=== PATIENT | female | born 1935 | race Caucasian/White ===

== ENCOUNTER 2017-12-01 07:23 | Inpatient (IN) | payer MEDICARE, BC ==
--- NOTE | 2017-12-01 08:23 | EDM.PDOC ---
ED HPI GENERAL MEDICAL PROBLEM - General Chief Complaint: Syncope Stated Complaint: STOMACHACHE,SOB,DIZZY Time Seen by Provider: 12/01/17 08:00 Source of Information: Reports: Patient History Limitations: Reports: No Limitations - History of Present Illness INITIAL COMMENTS - FREE TEXT/NARRATIVE: 82 YO WF presents to ER complaining of 1 week of dizziness with near syncope. Pt reports associated shortness of breath and palpitations. Pt denies any chest pain. Pt also reports generalized abdominal pain and change in bowel movements. Pt reports chronic diarrhea but over the last few days shes been constipated. Pt reports last BM was yesterday. Pt reports she's able to pass gas but has had decreased appetite and fluid consumption over the last week. Onset Date: 11/24/17 Duration: Week(s): (1) Location: Reports: Chest, Abdomen Quality: Reports: Ache Severity: Mild Improves with: Reports: None Worsens with: Reports: None Associated Symptoms: Reports: Loss of Appetite, Malaise, Shortness of Breath, Weakness. Denies: Confusion, Chest Pain, Cough, cough w sputum, Diaphoresis, Fever/Chills, Headaches, Nausea/Vomiting, Rash, Seizure, Syncope - Related Data Allergies Allergy/AdvReac Type Severity Reaction Status Date / Time No Known Drug Allergies Allergy Cannot Verified 12/01/17 07:29 Remember Home Meds: Home Meds Bimatoprost [LUMIGAN 0.01% Ophth Soln] 1 drop EYEBOTH BEDTIME 12/01/17 [History] Timolol [Betimol] 1 drop EYELF QAM 12/01/17 [History] Past Medical History HEENT History: Reports: Cataract, Glaucoma, Impaired Vision Other Cardiovascular History: states she was told that she has had silent heart attacks - stress test done Gastrointestinal History: Reports: Hemorrhoids Other Gastrointestinal History: history of colitis Genitourinary History: Reports: Renal Calculus 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: Musculoskeletal History: Reports: Arthritis Psychiatric History: Reports: Anxiety - Infectious Disease History Infectious Disease History: Reports: None - Past Surgical History HEENT Surgical History: Reports: Cataract Surgery Cardiovascular Surgical History: Reports: None Female Surgical History: Reports: Hysterectomy Musculoskeletal Surgical History: Reports: None Social & Family History - Tobacco Use Smoking Status *Q: Current Every Day Smoker Years of Tobacco use: 65 Packs/Tins Daily: 0.5 Second Hand Smoke Exposure: Yes - Alcohol Use Days Per Week of Alcohol Use: 7 Number of Drinks Per Day: 2 Total Drinks Per Week: 14 - Recreational Drug Use Recreational Drug Use: No ED ROS GENERAL - Review of Systems Review Of Systems: See Below Constitutional: Reports: Weakness HEENT: Reports: No Symptoms Respiratory: Reports: Shortness of Breath Cardiovascular: Reports: Dyspnea on Exertion Endocrine: Reports: No Symptoms GI/Abdominal: Reports: Abdominal Pain, Constipation. Denies: Black Stool, Bloody Stool, Hematochezia, Melena : Reports: No Symptoms Musculoskeletal: Reports: No Symptoms Skin: Reports: No Symptoms Neurological: Reports: No Symptoms Psychiatric: Reports: No Symptoms Hematologic/Lymphatic: Reports: No Symptoms Immunologic: Reports: No Symptoms ED EXAM, GENERAL - Physical Exam Exam: See Below Exam Limited By: No Limitations General Appearance: Alert, WD/WN, No Apparent Distress Throat/Mouth: Normal Inspection, Normal Lips, Normal Teeth, Normal Gums, Normal Oropharynx, Normal Voice, No Airway Compromise Head: Atraumatic, Normocephalic Neck: Normal Inspection, Supple, Non-Tender, Full Range of Motion Respiratory/Chest: No Respiratory Distress, Lungs Clear, Normal Breath Sounds, No Accessory Muscle Use, Chest Non-Tender Cardiovascular: Normal Peripheral Pulses, No Edema, No JVD, No Rub, Tachycardia , Irregularly Irregular GI/Abdominal: Normal Bowel Sounds, Soft, No Organomegaly, No Distention, No Abnormal Bruit, No Mass, Tender (epigastric). No: Distended, Guarding, Rigid, Rebound Back Exam: Normal Inspection, Full Range of Motion, NT Extremities: Normal Inspection, Normal Range of Motion, Non-Tender, Normal Capillary Refill, No Pedal Edema Neurological: Alert, Oriented, CN II-XII Intact, Normal Cognition, Normal Gait, Normal Reflexes, No Motor/Sensory Deficits Psychiatric: Normal Affect, Normal Mood Skin Exam: Warm, Dry, Intact, Normal Color, No Rash Lymphatic: No Adenopathy EKG INTERPRETATION EKG Date: 12/01/17 Time: 07:54 Rhythm: A-Fib Rate (Beats/Min): 143 [place]: Normal P-Wave: Absent QRS: Normal ST-T: Normal QT: Normal Comparison: NA - No Prior EKG Course - Vital Signs Last Recorded V/S: Last Vital Signs Temp 36.6 C 05/14/18 07:27 Pulse 96 12/01/17 08:34 Resp 32 H 12/01/17 08:34 BP 129/74 12/01/17 08:34 Pulse Ox 92 L 12/01/17 08:34 - Orders/Labs/Meds Orders: Active Orders 24 hr Category Date Time Status Chest 2V [CR] Routine Exams 12/01/17 Ordered B-TYPE NATRIURETIC PEPTIDE,BNP [CHEM] Stat Lab 12/01/17 07:55 Results CK W CKMB [CHEM] Stat Lab 12/01/17 07:55 Results COMPREHENSIVE METABOLIC PN,CMP [CHEM] Stat Lab 12/01/17 07:55 Results INR,PT,PROTHROMBIN TIME [COAG] Stat Lab 12/01/17 07:55 Received LIPASE [CHEM] Stat Lab 12/01/17 07:55 Results PTT,PARTIAL THROMBOPLSTIN TIME [COAG] Stat Lab 12/01/17 07:55 Received TROPONIN I [CHEM] Stat Lab 12/01/17 07:55 Results URINALYSIS W/MICROSCOPIC [UA W/MICROSCOPIC] [URIN] Stat Lab 12/01/17 07:45 Ordered Diltiazem 125 MG in NS 125 ML @ 5 MG/HR (100ml) Med 12/01/17 08:45 Ordered Diltiazem 125 mg Sodium Chloride 0.9% [Normal Saline] 100 ml IV TITRATE Medication Orders Diltiazem HCl 125 mg/ Sodium (Chloride) 125 mls @ 5 mls/hr IV TITRATE CINTHIA Labs: Laboratory Tests 12/01/17 12/01/17 12/01/17 Range/Units 07:45 07:55 07:55 WBC 10.0 (5.0-10.0) 10^3/uL RBC 4.42 (3.80-5.50) 10^6/uL Hgb 15.0 (12.0-16.0) g/dL Hct 44.3 (37.0-47.0) % MCV 100.4 H (82.0-92.0) fL MCH 34.0 H (27.0-31.0) pg MCHC 33.8 (32.0-36.0) g/dL RDW 13.2 (11.5-14.5) % Plt Count 268 (150-300) 10^3/uL MPV 8.4 (7.4-10.4) fL Neut % (Auto) 84.2 H (50.0-70.0) % Lymph % (Auto) 9.8 L (20.0-40.0) % [place] % (Auto) 5.5 (2.0-8.0) % Eos % (Auto) 0.4 L (1.0-3.0) % Baso % (Auto) 0.1 (0.0-1.0) % Neut # (Auto) 8.4 H (2.5-7.0) 10^3/uL Lymph # (Auto) 1.0 (1.0-4.0) 10^3/uL [place] # (Auto) 0.6 (0.1-0.8) 10^3/uL Eos # (Auto) 0.0 L (0.1-0.3) 10^3/uL Baso # (Auto) 0.0 (0.0-0.1) 10^3/uL Sodium 133 L (136-145) mmol/L Potassium 4.5 (3.3-5.3) mmol/L Chloride 96 L (98-115) mmol/L Carbon Dioxide 24.1 (21.0-32.0) mmol/L BUN 10 (6-25) mg/dL Creatinine 0.53 (0.51-1.17) mg/dL Est Cr Clr Drug Dosing 72.75 mL/min Estimated GFR (MDRD) > 60 mL/min Glucose 181 H (70-110) mg/dL Calcium 9.0 (8.7-10.3) mg/dL Total Bilirubin 0.7 (0.2-1.0) mg/dL AST 35 (15-37) U/L ALT 44 (12-78) U/L Alkaline Phosphatase 92 (46-116) IU/L Creatine Kinase 54 (26-276) U/L CK-MB (CK-2) 1.20 (0.00-4.30) ng/mL Troponin I < 0.04 (0.00-0.070) ng/mL Total Protein 6.8 (6.4-8.2) g/dL Albumin 3.48 (3.00-4.80) g/dL Lipase 94 (73-393) U/L Specimen Type Urincc Urine Color Dark yellow H (YELLOW) Urine Appearance Clear (CLEAR) Urine pH 6.5 (5.0-9.0) Ur Specific [place] 1.020 (1.005-1.030) Urine Protein 100 H (NEGATIVE) mg/dL Urine Glucose (UA) Negative (NEGATIVE) mg/dL Urine Ketones 15 H (NEGATIVE) mg/dL Urine Occult Blood Trace-intact H (NEGATIVE) Urine Nitrite Negative (NEGATIVE) Urine Bilirubin Moderate H (NEGATIVE) Urine Urobilinogen 4.0 H (0.2-1.0) E.U./dL Ur Leukocyte Esterase Negative (NEGATIVE) Urine RBC 0-5 /HPF Urine WBC 0-5 /HPF Ur Epithelial Cells Few /LPF Urine Bacteria Moderate H (NONE TO FEW) /HPF Urine Mucus Many H (NEGATIVE) /LPF Meds: Medications Generic Name Dose Route Start Last Admin Trade Name Freq PRN Reason Stop Dose Admin Diltiazem HCl 125 mg/ Sodium 125 mls @ 5 mls/hr 12/01/17 08:45 Chloride IV TITRATE CINTHIA 5 MG/HR Discontinued Medications Generic Name Dose Route Start Last Admin Trade Name Freq PRN Reason Stop Dose Admin Diltiazem HCl 15 mg 12/01/17 08:23 12/01/17 08:26 Diltiazem IVPUSH 12/01/17 08:24 15 mg ONETIME ONE Administration - Radiology Interpretation Free Text/Narrative:: CXR- NAD Departure - Departure Time of Disposition: 08:45 Disposition: Admitted As Inpatient 68 Condition: Fair Clinical Impression: Hyponatremia Atrial fibrillation Qualifiers: Atrial fibrillation type: unspecified Qualified Code(s): I48.91 - Unspecified atrial fibrillation Urinary tract infection Qualifiers: Urinary tract infection type: acute cystitis Hematuria presence: without hematuria Qualified Code(s): N30.00 - Acute cystitis without hematuria Abdominal pain Qualifiers: Abdominal location: epigastric Qualified Code(s): R10.13 - Epigastric pain Referrals: Claudia Cardona MD [Primary Care Provider] - Forms: ED Department Discharge - My Orders Last 24 Hours: My Active Orders 12/01/17 Chest 2V [CR] Routine 12/01/17 07:45 URINALYSIS W/MICROSCOPIC [UA W/MICROSCOPIC] [URIN] Stat 12/01/17 07:55 B-TYPE NATRIURETIC PEPTIDE,BNP [CHEM] Stat CK W CKMB [CHEM] Stat COMPREHENSIVE METABOLIC PN,CMP [CHEM] Stat INR,PT,PROTHROMBIN TIME [COAG] Stat LIPASE [CHEM] Stat PTT,PARTIAL THROMBOPLSTIN TIME [COAG] Stat TROPONIN I [CHEM] Stat 12/01/17 08:45 Diltiazem 125 MG in NS 125 ML @ 5 MG/HR (100ml) Diltiazem 125 mg Sodium Chloride 0.9% [Normal Saline] 100 ml IV TITRATE - Assessment/Plan Last 24 Hours: My Active Orders 12/01/17 Chest 2V [CR] Routine 12/01/17 07:45 URINALYSIS W/MICROSCOPIC [UA W/MICROSCOPIC] [URIN] Stat 12/01/17 07:55 B-TYPE NATRIURETIC PEPTIDE,BNP [CHEM] Stat CK W CKMB [CHEM] Stat COMPREHENSIVE METABOLIC PN,CMP [CHEM] Stat INR,PT,PROTHROMBIN TIME [COAG] Stat LIPASE [CHEM] Stat PTT,PARTIAL THROMBOPLSTIN TIME [COAG] Stat TROPONIN I [CHEM] Stat 12/01/17 08:45 Diltiazem 125 MG in NS 125 ML @ 5 MG/HR (100ml) Diltiazem 125 mg Sodium Chloride 0.9% [Normal Saline] 100 ml IV TITRATE Assessment:: 1. new onset Atrial Fibrillation 2. epigastric abdominal pain 3. constipation 4. hyponatremia 5. UTI Plan: 1. Admit to Dr Silva 2. Cardizem 5mg gtt IV 3. repeat trop I Q6 4. Keflex 500mg Q6 5. gentle IVF hydration NS @75cc/hr 6. supportive care
[2017-12-01] MEDS: Diltiazem 25 MG/5 ML SDV IVPUSH ONE ×2 (08:26→08:46)
[2017-12-01 08:36] LABS: CHLORIDE,CL 96 mmol/L (98-115); SODIUM,NA 133 mmol/L (136-145)
[2017-12-01] MEDS ORDERED: Diltiazem 125 MG in Sodium Chloride 0.9% 100 ML IV SCH ×3 (08:45→18:15)
[2017-12-01] MEDS ORDERED: Sodium Chloride 0.9% 5 ML Syringe FLUSH PRN (08:48)
[2017-12-01] MEDS ORDERED: Nitroglycerin 0.4 MG Tab.SL SL PRN (09:43)
[2017-12-01] MEDS ORDERED: EPINEPHrine 1:10,000 1 MG/10 ML Syringe IVPUSH PRN (09:43)
[2017-12-01] MEDS ORDERED: Lidocaine 2% 100 MG/5 ML Syringe IVPUSH PRN (09:43)
[2017-12-01] MEDS ORDERED: Atropine 0.1 MG/ML 10 ML Syringe IVPUSH PRN (09:43)
[2017-12-01] MEDS: Cephalexin 250 MG Cap PO SCH ×2 (10:46→10:48)
[2017-12-01] MEDS ORDERED: LORazepam 2 MG/ML SDV IVPUSH PRN (11:15)
[2017-12-01 11:59] LABS: O2 DELIVERY DEVICE NASAL CANNULA
[2017-12-01 12:04] LABS: O2 SATURATION ARTERIAL 95 % (95-98); PCO2 ARTERIAL 38 mmHG (35-45); PO2 ARTERIAL 76 mmHG (80-105)
[2017-12-01 12:05] LABS: BASE EXCESS ARTERIAL 1 mmol/L (-2-3); BICARBONATE,ARTERIAL 24.9 mmol/L (22-26)
[2017-12-01] MEDS ORDERED: Enoxaparin 40 MG/0.4 ML Syringe SUBCUT SCH (13:00)
[2017-12-01] MEDS ORDERED: Iopamidol 612 MG/ML 75 ML Bottle IV ONE (14:41)
[2017-12-01] MEDS ORDERED: Sodium Chloride 0.9% 50 ML IV SCH (14:45)
[2017-12-01] MEDS ORDERED: Iopamidol 755 Mg/ML 100 ML Bottle IVPUSH ONE (14:47)
[2017-12-01] MEDS ORDERED: Sodium Chloride 0.9% 100 ML IV SCH (15:00)
[2017-12-01] MEDS ORDERED: Furosemide 40 MG/4 ML VIAL IVPUSH ONE (16:38)
[2017-12-01] MEDS ORDERED: Sodium Chloride 0.9% 1,000 ML IV ONE (18:32)
[2017-12-01] MEDS ORDERED: metroNIDAZOLE/Normal Saline 500 MG in Premix Bag 1 BAG IV ONE (18:45)
[2017-12-01] MEDS ORDERED: LORazepam 2 MG/ML SDV IVPUSH ONE (18:45)
--- NOTE | 2017-12-01 18:47 | PCM.DCSUM1 ---
Discharge Summary - Hospital Course Free Text/Narrative:: Joanna is being discharged to [facility] for further management of A-fib with RVR, bilateral pleural effusions and possible perforated diverticulum. She was admitted this morning (12/01/17). Joanna is an 82 yo F with a PMH of glaucoma and cataracts, smoker of 1/2 ppd. She presented to the ER this morning with a 1 week hx of dizziness with near syncope, palpitations, SOB and generalized abdominal pain. She has a hx of chronic diarrhea and has tended toward constipation over the past week. She has a BM yesterday. She has been nauseated and has had poor appetite over this same time frame. In the ER she was noted to be in A-fib with RVR, rate of 143. She was started on diltiazem drip. CXR negative, troponin negative. Initial VS 145/95, pulse 143, RR 18, O2 92% on RA, temp 97.9. Labs wtih Hgb 15, WBC 10 with a slight left shift 84.2% neuts, INR 1.2, sodium 133, potassium 4.5, chloride 96, CO2 24.1, BUN 10, Cr 0.53. Mag slightly low at 1.6, LFT's normal. She was started on IVF's as well at 75cc per hour due to some ketones in her urine. UA largely unremarkable. Diltizem drip titrated up to 15 mg/hr but BP dropped to 90/53 so rate backed down to 10 mg/hr. RR noted to increase and she has been tachypneic with rate as high as 38 but typically high 20's to low 30' s. She is not working hard to breathe, however. She was also noted to have significant epigastric tenderness on examination. D-dimer checked and was 842, ABG with PO2 76, CO2 38, pH 7.43. BNP 783 with no hx of CHF or cardiac issues at all. CT PE protocol obtained as well as CT abdomen and pelvis. CT chest showed moderate right pleural effusion as well as small left pleural effusion. Moderate pulmonary vascular congestion. CT abdomen showed small free air likely related to diverticular disease of the sigmoid colon with moderate amount of free fluid in the pelvis. Question of thrombus superior mesenteric vein vs. unopacified blood. Given pulmonary vascular congestion and tachypnea with elevated BNP IVF's were held and lasix 20 mg IV was given. This did not change her respiratory status. The CT results became available around 1644 and I consulted with [facility], who felt she was too complicated to be seen there. It took them 45 minutes to get back to me. I then called [facility] and spoke to their hospitalist as well as surgeon and eventually graphics artist Dr. Simon, who graciously accepted her for transfer. Her heart rate has been in the 80-90's on 10 mg/hr of diltiazem. She did go up to the low 100's with news she needed to be transferred. She was given lorazepam 1 mg IV for this. She received lovenox 40 mg subcut at 1400. She was restarted on IVF's of NS at 100 cc per hour as well as ciprofloxacin 400 mg IV x 1 and metronidazole 500 mg IV x 1. Respiratory status is stable and low risk of progression to respiratory failure at the time of transfer. She is sent with her eye drops for her glaucoma. VS at transfer BP 124-78, respiratory rate 32, pulse 109, O2 96% on 2L via NC. - Discharge Data Discharge Date: 12/01/17 Discharge Disposition: DC/Tfer to Acute Hospital 02 Condition: Serious - Discharge Diagnosis/Problem(s) (1) Free intraperitoneal air SNOMED Code(s): 19976581 ICD Code: K66.8 - OTHER SPECIFIED DISORDERS OF PERITONEUM Status: Acute Current Visit: Yes (2) Atrial fibrillation SNOMED Code(s): 22111903 ICD Code: I48.91 - UNSPECIFIED ATRIAL FIBRILLATION Status: Acute Current Visit: Yes Qualifiers: Atrial fibrillation type: unspecified Qualified Code(s): I48.91 - Unspecified atrial fibrillation - Patient Instructions Diet: NPO - Discharge Plan Home Medications: Home Meds Bimatoprost [LUMIGAN 0.01% Ophth Soln] 1 drop EYEBOTH BEDTIME 12/01/17 [History] Timolol 0.5% Gfs 1 drop EYELF DAILY 12/01/17 [History] Forms: Interfacility Transfer EMTALA Referrals: Claudia Cardona MD [Primary Care Provider] - - Discharge Summary/Plan Comment DC Time >30 min.: Yes (Discharge time 90 minutes) - General Info Date of Service: 12/01/17 Admission Dx/Problem (Free Text: A-fib with RVR, abdominal pain. - Patient Data Vitals - Most Recent: Last Vital Signs Temp 98.7 F 12/01/17 15:30 Pulse 109 H 12/01/17 15:30 Resp 32 H 12/01/17 15:30 BP 124/78 12/01/17 15:30 Pulse Ox 96 12/01/17 15:30 Weight - Most Recent: 120 lb I&O - Last 24 hours: Intake & Output 12/01/17 12/01/17 12/01/17 06:59 14:59 22:59 Intake Total 100 98 Balance 100 98 Lab Results - Last 24 hrs: Laboratory Results - last 24 hr 12/01/17 12/01/17 12/01/17 Range/Units 07:45 07:55 07:55 WBC 10.0 (5.0-10.0) 10^3/uL RBC 4.42 (3.80-5.50) 10^6/uL Hgb 15.0 (12.0-16.0) g/dL Hct 44.3 (37.0-47.0) % MCV 100.4 H (82.0-92.0) fL MCH 34.0 H (27.0-31.0) pg MCHC 33.8 (32.0-36.0) g/dL RDW 13.2 (11.5-14.5) % Plt Count 268 (150-300) 10^3/uL MPV 8.4 (7.4-10.4) fL Neut % (Auto) 84.2 H (50.0-70.0) % Lymph % (Auto) 9.8 L (20.0-40.0) % Price % (Auto) 5.5 (2.0-8.0) % Eos % (Auto) 0.4 L (1.0-3.0) % Baso % (Auto) 0.1 (0.0-1.0) % Neut # (Auto) 8.4 H (2.5-7.0) 10^3/uL Lymph # (Auto) 1.0 (1.0-4.0) 10^3/uL Price # (Auto) 0.6 (0.1-0.8) 10^3/uL Eos # (Auto) 0.0 L (0.1-0.3) 10^3/uL Baso # (Auto) 0.0 (0.0-0.1) 10^3/uL PT (8.9-11.4) SEC INR (0.9-1.1) APTT (20.8-31.2) SEC D-Dimer, Quantitative (<400) ng/mL ABG pH (7.35-7.45) ABG pCO2 (35-45) mmHG ABG pO2 (80-105) mmHG ABG HCO3 (22-26) mmol/L ABG Total CO2 (23-27) mmol/L ABG O2 Saturation (95-98) % ABG Base Excess (-2-3) mmol/L O2 Delivery Device Sodium 133 L (136-145) mmol/L Potassium 4.5 (3.3-5.3) mmol/L Chloride 96 L (98-115) mmol/L Carbon Dioxide 24.1 (21.0-32.0) mmol/L BUN 10 (6-25) mg/dL Creatinine 0.53 (0.51-1.17) mg/dL Est Cr Clr Drug Dosing 72.75 mL/min Estimated GFR (MDRD) > 60 mL/min Glucose 181 H (70-110) mg/dL Calcium 9.0 (8.7-10.3) mg/dL Magnesium (1.8-2.4) mg/dL Total Bilirubin 0.7 (0.2-1.0) mg/dL AST 35 (15-37) U/L ALT 44 (12-78) U/L Alkaline Phosphatase 92 (46-116) IU/L Creatine Kinase 54 (26-276) U/L CK-MB (CK-2) 1.20 (0.00-4.30) ng/mL Troponin I < 0.04 (0.00-0.070) ng/mL B-Natriuretic Peptide 783 H (0-100) pg/mL Total Protein 6.8 (6.4-8.2) g/dL Albumin 3.48 (3.00-4.80) g/dL Lipase 94 (73-393) U/L Free T4 (0.59-1.17) ng/dL TSH, Ultra Sensitive (0.340-4.820) uIU/mL Specimen Type Urincc Urine Color Dark yellow H (YELLOW) Urine Appearance Clear (CLEAR) Urine pH 6.5 (5.0-9.0) Ur Specific [place] 1.020 (1.005-1.030) Urine Protein 100 H (NEGATIVE) mg/dL Urine Glucose (UA) Negative (NEGATIVE) mg/dL Urine Ketones 15 H (NEGATIVE) mg/dL Urine Occult Blood Trace-intact H (NEGATIVE) Urine Nitrite Negative (NEGATIVE) Urine Bilirubin Moderate H (NEGATIVE) Urine Urobilinogen 4.0 H (0.2-1.0) E.U./dL Ur Leukocyte Esterase Negative (NEGATIVE) Urine RBC 0-5 /HPF Urine WBC 0-5 /HPF Ur Epithelial Cells Few /LPF Urine Bacteria Moderate H (NONE TO FEW) /HPF Urine Mucus Many H (NEGATIVE) /LPF 12/01/17 12/01/17 12/01/17 Range/Units 07:55 07:55 07:55 WBC (5.0-10.0) 10^3/uL RBC (3.80-5.50) 10^6/uL Hgb (12.0-16.0) g/dL Hct (37.0-47.0) % MCV (82.0-92.0) fL MCH (27.0-31.0) pg MCHC (32.0-36.0) g/dL RDW (11.5-14.5) % Plt Count (150-300) 10^3/uL MPV (7.4-10.4) fL Neut % (Auto) (50.0-70.0) % Lymph % (Auto) (20.0-40.0) % Price % (Auto) (2.0-8.0) % Eos % (Auto) (1.0-3.0) % Baso % (Auto) (0.0-1.0) % Neut # (Auto) (2.5-7.0) 10^3/uL Lymph # (Auto) (1.0-4.0) 10^3/uL Price # (Auto) (0.1-0.8) 10^3/uL Eos # (Auto) (0.1-0.3) 10^3/uL Baso # (Auto) (0.0-0.1) 10^3/uL PT 12.5 H (8.9-11.4) SEC INR 1.2 H (0.9-1.1) APTT 24.0 (20.8-31.2) SEC D-Dimer, Quantitative 842 H (<400) ng/mL ABG pH (7.35-7.45) ABG pCO2 (35-45) mmHG ABG pO2 (80-105) mmHG ABG HCO3 (22-26) mmol/L ABG Total CO2 (23-27) mmol/L ABG O2 Saturation (95-98) % ABG Base Excess (-2-3) mmol/L O2 Delivery Device Sodium (136-145) mmol/L Potassium (3.3-5.3) mmol/L Chloride (98-115) mmol/L Carbon Dioxide (21.0-32.0) mmol/L BUN (6-25) mg/dL Creatinine (0.51-1.17) mg/dL Est Cr Clr Drug Dosing mL/min Estimated GFR (MDRD) mL/min Glucose (70-110) mg/dL Calcium (8.7-10.3) mg/dL Magnesium (1.8-2.4) mg/dL Total Bilirubin (0.2-1.0) mg/dL AST (15-37) U/L ALT (12-78) U/L Alkaline Phosphatase (46-116) IU/L Creatine Kinase (26-276) U/L CK-MB (CK-2) (0.00-4.30) ng/mL Troponin I (0.00-0.070) ng/mL B-Natriuretic Peptide (0-100) pg/mL Total Protein (6.4-8.2) g/dL Albumin (3.00-4.80) g/dL Lipase (73-393) U/L Free T4 1.03 (0.59-1.17) ng/dL TSH, Ultra Sensitive 2.340 (0.340-4.820) uIU/mL Specimen Type Urine Color (YELLOW) Urine Appearance (CLEAR) Urine pH (5.0-9.0) Ur Specific [place] (1.005-1.030) Urine Protein (NEGATIVE) mg/dL Urine Glucose (UA) (NEGATIVE) mg/dL Urine Ketones (NEGATIVE) mg/dL Urine Occult Blood (NEGATIVE) Urine Nitrite (NEGATIVE) Urine Bilirubin (NEGATIVE) Urine Urobilinogen (0.2-1.0) E.U./dL Ur Leukocyte Esterase (NEGATIVE) Urine RBC /HPF Urine WBC /HPF Ur Epithelial Cells /LPF Urine Bacteria (NONE TO FEW) /HPF Urine Mucus (NEGATIVE) /LPF 12/01/17 12/01/17 Range/Units 11:55 14:00 WBC (5.0-10.0) 10^3/uL RBC (3.80-5.50) 10^6/uL Hgb (12.0-16.0) g/dL Hct (37.0-47.0) % MCV (82.0-92.0) fL MCH (27.0-31.0) pg MCHC (32.0-36.0) g/dL RDW (11.5-14.5) % Plt Count (150-300) 10^3/uL MPV (7.4-10.4) fL Neut % (Auto) (50.0-70.0) % Lymph % (Auto) (20.0-40.0) % Price % (Auto) (2.0-8.0) % Eos % (Auto) (1.0-3.0) % Baso % (Auto) (0.0-1.0) % Neut # (Auto) (2.5-7.0) 10^3/uL Lymph # (Auto) (1.0-4.0) 10^3/uL Price # (Auto) (0.1-0.8) 10^3/uL Eos # (Auto) (0.1-0.3) 10^3/uL Baso # (Auto) (0.0-0.1) 10^3/uL PT (8.9-11.4) SEC INR (0.9-1.1) APTT (20.8-31.2) SEC D-Dimer, Quantitative (<400) ng/mL ABG pH 7.43 (7.35-7.45) ABG pCO2 38 (35-45) mmHG ABG pO2 76 L (80-105) mmHG ABG HCO3 24.9 (22-26) mmol/L ABG Total CO2 26 (23-27) mmol/L ABG O2 Saturation 95 (95-98) % ABG Base Excess 1 (-2-3) mmol/L O2 Delivery Device Nasal cannula Sodium (136-145) mmol/L Potassium (3.3-5.3) mmol/L Chloride (98-115) mmol/L Carbon Dioxide (21.0-32.0) mmol/L BUN (6-25) mg/dL Creatinine (0.51-1.17) mg/dL Est Cr Clr Drug Dosing mL/min Estimated GFR (MDRD) mL/min Glucose (70-110) mg/dL Calcium (8.7-10.3) mg/dL Magnesium 1.6 L (1.8-2.4) mg/dL Total Bilirubin (0.2-1.0) mg/dL AST (15-37) U/L ALT (12-78) U/L Alkaline Phosphatase (46-116) IU/L Creatine Kinase (26-276) U/L CK-MB (CK-2) (0.00-4.30) ng/mL Troponin I < 0.04 (0.00-0.070) ng/mL B-Natriuretic Peptide (0-100) pg/mL Total Protein (6.4-8.2) g/dL Albumin (3.00-4.80) g/dL Lipase (73-393) U/L Free T4 (0.59-1.17) ng/dL TSH, Ultra Sensitive (0.340-4.820) uIU/mL Specimen Type Urine Color (YELLOW) Urine Appearance (CLEAR) Urine pH (5.0-9.0) Ur Specific [place] (1.005-1.030) Urine Protein (NEGATIVE) mg/dL Urine Glucose (UA) (NEGATIVE) mg/dL Urine Ketones (NEGATIVE) mg/dL Urine Occult Blood (NEGATIVE) Urine Nitrite (NEGATIVE) Urine Bilirubin (NEGATIVE) Urine Urobilinogen (0.2-1.0) E.U./dL Ur Leukocyte Esterase (NEGATIVE) Urine RBC /HPF Urine WBC /HPF Ur Epithelial Cells /LPF Urine Bacteria (NONE TO FEW) /HPF Urine Mucus (NEGATIVE) /LPF Med Orders - Current: Current Medications Atropine Sulfate (Atropine 0.1 Mg/Ml) 0 mg IVPUSH ASDIRECTED PRN PRN Reason: Heart Enoxaparin Sodium (Lovenox) 40 mg SUBCUT Q24H CINTHIA Last Admin: 12/01/17 14:00 Dose: 40 mg Epinephrine HCl (Epinephrine 1:10,000) 1 mg IVPUSH ASDIRECTED PRN PRN Reason: Heart Diltiazem HCl 125 mg/ Sodium (Chloride) 125 mls @ 10 mls/hr IV TITRATE CINTHIA Ciprofloxacin/Dextrose 400 mg/ (Premix) 200 mls @ 200 mls/hr IV ONETIME CINTHIA Metronidazole 500 mg/ Premix 100 mls @ 100 mls/hr IV ONETIME CINTHIA Sodium Chloride (Normal Saline) 1,000 mls @ 100 mls/hr IV ASDIRECTED ONE Stop: 12/02/17 04:31 Lidocaine HCl (Xylocaine 2%) 0 mg IVPUSH ASDIRECTED PRN PRN Reason: Heart Lorazepam (Ativan) 1 mg IVPUSH Q8H PRN PRN Reason: Anxiety Last Admin: 12/01/17 12:42 Dose: 1 mg Nitroglycerin (Nitrostat) 0.4 mg SL ASDIRECTED PRN PRN Reason: Heart Bimatoprost (Lumigan ) 0.01% Ophth Solution 0 each EYEBOTH BEDTIME [facility] Timolol 0.5% Gfs (Ophth) 0 each EYELF DAILY [facility] Discontinued Medications Cephalexin (Keflex) 500 mg PO Q6HR [facility]TH[facility] Last Admin: 12/01/17 10:48 Dose: Not Given Diltiazem HCl (Diltiazem) 15 mg IVPUSH ONETIME ONE Stop: 12/01/17 08:24 Last Admin: 12/01/17 08:26 Dose: 15 mg Furosemide (Lasix) 20 mg IVPUSH NOW ONE Stop: 12/01/17 16:39 Last Admin: 12/01/17 16:59 Dose: 20 mg Diltiazem HCl 125 mg/ Sodium (Chloride) 125 mls @ 5 mls/hr IV TITRATE [facility]; Protocol Last Admin: 12/01/17 08:45 Dose: 5 mg/hr, 5 mls/hr Diltiazem HCl 125 mg/ Sodium (Chloride) 125 mls @ 5 mls/hr IV TITRATE [facility]; Protocol Sodium Chloride (Normal Saline) 100 mls @ 200 mls/hr IV ASDIRECTED [facility]TH[facility] Stop: 12/01/17 17:00 Last Admin: 12/01/17 15:55 Dose: 200 mls/hr Iopamidol (Isovue-370 (76%)) 100 ml IVPUSH ONETIME ONE Stop: 12/01/17 14:48 Last Admin: 12/01/17 15:55 Dose: 100 ml Sodium Chloride (Syrex Flush) 5 ml FLUSH Q8HR PRN PRN Reason: Keep Vein Open - Exam Quality Assessment: Reports: Supplemental Oxygen General: Reports: Alert, Oriented, Cooperative, Other (Anxious) Lungs: Reports: Crackles (Bibasilar crackles.), Other (Tachypneic) Cardiovascular: Reports: No Murmurs, Irregular Rhythm GI/Abdominal Exam: Normal Bowel Sounds, Tender (Epigastric tenderness) Extremities: Normal Inspection, No Pedal Edema Skin: Reports: Warm, Dry, Intact Psy/Mental Status: Reports: Alert, Anxious EKG INTERPRETATION Rhythm: A-Fib
[2017-12-01] MEDS ORDERED: Ciprofloxacin in D5W 400 MG in Premix Bag 1 BAG IV ONE ×2 (20:00)
[2017-12-01] MEDS ORDERED: BIMATOPROST 0.01% EYEBOTH SCH (21:00)
[2017-12-02] MEDS ORDERED: TIMOLOL 0.5% EYELF SCH (09:00)
== END 2017-12-01 19:45 | DRG 394 ==
LOC: KA.ED 07:23 → KA.MS 08:48 → UNDODISIN 09:10
PROVIDERS: ADMIT Physician Assistant Medical; ATTEND Internal Medicine
DX: K66.8 Other specified disorders of peritoneum (principal); N30.00 Acute cystitis without hematuria; J90 Pleural effusion, not elsewhere classified; R10.13 Epigastric pain; K59.00 Constipation, unspecified; K57.20 Diverticulitis of large intestine with perforation and abscess without bleeding; E87.1 Hypo-osmolality and hyponatremia; I48.91 Unspecified atrial fibrillation; H40.9 Unspecified glaucoma; Z79.899 Other long term (current) drug therapy; F41.9 Anxiety disorder, unspecified; F17.200 Nicotine dependence, unspecified, uncomplicated
CPT/HCPCS: 36415; 36600; 71046; 71260; 74177; 80053; 81001; 82550; 82553; 82803; 83690; 83735; 83880; 84439; 84443; 84484; 85025; 85379; 85610; 85730; 87086; 93005; 96374; 99285; A9270-GY; J0744; J1650; J1940; J2060; J3490; J7030; J7050; Q9967

== ENCOUNTER 2022-02-18 14:09 | Inpatient (IN) | payer MEDICARE, BC ==
[2022-02-18] MEDS ORDERED: Sodium Chloride 0.9% 1,000 ML IV ONE (14:18)
[2022-02-18] MEDS: Ondansetron 4 MG/2 ML SDV IVPUSH ONE ×2 (14:25→14:28)
[2022-02-18] MEDS ORDERED: Morphine 2 MG/ML SYRINGE IVPUSH ONE ×5 (14:31→19:38)
[2022-02-18] MEDS ORDERED: Morphine 2 MG/ML SYRINGE ONE (14:32)
[2022-02-18] MEDS ORDERED: Metoprolol Tartrate 5 MG/5 ML SDV IVPUSH ONE ×2 (15:05→16:01)
[2022-02-18] MEDS ORDERED: Iopamidol 755 Mg/ML 75 ML Bottle IVPUSH ONE (15:11)
[2022-02-18] MEDS ORDERED: Sodium Chloride 0.9% 50 ML IV SCH (15:15)
[2022-02-18] MEDS ORDERED: HYDROmorphone 1 MG/ML Syringe IM ONE (16:00)
[2022-02-18] MEDS ORDERED: HYDROmorphone 1 MG/ML Syringe IVPUSH ONE ×2 (16:11→17:16)
[2022-02-18] MEDS: Sodium Chloride 0.9% 1,000 ML IV SCH (18:13)
[2022-02-18] MEDS ORDERED: Ondansetron 4 MG/2 ML SDV IVPUSH ONE (18:22)
[2022-02-18] MEDS ORDERED: Morphine 2 MG/ML SYRINGE IVPUSH PRN (18:48)
[2022-02-18] MEDS ORDERED: Ondansetron 4 MG/2 ML SDV IVPUSH PRN (18:50)
[2022-02-18] MEDS ORDERED: HYDROmorphone 1 MG/ML Syringe IVPUSH PRN (20:57)
[2022-02-18] MEDS ORDERED: Apixaban 5 MG Tab PO SCH (21:00)
[2022-02-18] MEDS ORDERED: Latanoprost 0.005% Ophth Soln 2.5 ML Bottle EYEBOTH SCH (21:00)
[2022-02-18] MEDS: HYDROmorphone 1 MG/ML Syringe IVPUSH PRN ×2 (22:49→23:50)
[2022-02-18] MEDS ORDERED: hydrALAZINE 20 MG/ML SDV IVPUSH PRN (23:04)
[2022-02-19] MEDS: HYDROmorphone 1 MG/ML Syringe IVPUSH PRN ×12 (00:57→20:31)
[2022-02-19] MEDS: Sodium Chloride 0.9% 1,000 ML IV SCH ×3 (04:07→22:44)
[2022-02-19 08:00] LABS: HEMOGLOBIN A1C 5.6 % (4.3-5.7)
[2022-02-19] MEDS: Enoxaparin 40 MG/0.4 ML Syringe SUBCUT SCH (08:18)
[2022-02-19] MEDS ORDERED: Apixaban 5 MG Tab PO SCH (09:00)
[2022-02-19] MEDS ORDERED: Metoprolol Succinate 25 MG Tab.ER PO SCH (09:00)
[2022-02-19] MEDS ORDERED: Timolol Maleate 0.5% Ophth Soln 5 ML Bottle EYELF SCH (09:00)
[2022-02-19] MEDS ORDERED: Lisinopril 20 MG Tab PO SCH (09:00)
[2022-02-19] MEDS: metroNIDAZOLE/Normal Saline 500 MG in Premix Bag 1 BAG IV SCH ×2 (09:16→17:18)
[2022-02-19] MEDS ORDERED: Clindamycin Phosphate in D5W 900 MG in Premix Bag 1 BAG IV SCH ×2 (14:00)
[2022-02-19] MEDS ORDERED: Sodium Chloride 0.9% 1,000 ML IV SCH ×2 (14:45→17:30)
[2022-02-19] MEDS: Meropenem 1 GM in Sodium Chloride 0.9% 100 ML IV SCH (15:59)
[2022-02-19] MEDS ORDERED: Digoxin 125 MCG Tab PO SCH (18:00)
[2022-02-19] MEDS ORDERED: EYE EYEBOTH SCH (21:00)
[2022-02-19] MEDS ORDERED: LUMIGAN 0.01% EYEBOTH SCH (21:00)
[2022-02-20] MEDS: metroNIDAZOLE/Normal Saline 500 MG in Premix Bag 1 BAG IV SCH ×2 (01:07→08:23)
[2022-02-20] MEDS: Meropenem 1 GM in Sodium Chloride 0.9% 100 ML IV SCH (03:16)
[2022-02-20] MEDS: HYDROmorphone 1 MG/ML Syringe IVPUSH PRN ×5 (03:21→14:05)
[2022-02-20] MEDS: Sodium Chloride 0.9% 1,000 ML IV SCH (07:21)
[2022-02-20 08:08] LABS: ANION GAP 14.4 mmol/L (5-15)
[2022-02-20] MEDS: Enoxaparin 40 MG/0.4 ML Syringe SUBCUT SCH (08:23)
[2022-02-20] MEDS ORDERED: TIMOLOL 0.5% EYELF SCH (09:00)
[2022-02-20 13:49] VITALS: BP 114/57; PULSE 122
== END 2022-02-20 14:10 | DRG 872 ==
LOC: KA.ED 14:09 → KA.MS 17:26
PROVIDERS: ADMIT Internal Medicine; ATTEND Internal Medicine
PROC: 0D9670Z Drainage of Stomach with Drainage Device, Via Natural or Artificial Opening (ICD-10-PCS; principal; 2022-02-18)
DX: A41.9 Sepsis, unspecified organism (principal); I48.11 Longstanding persistent atrial fibrillation; R10.13 Epigastric pain; N17.9 Acute kidney failure, unspecified; K58.9 Irritable bowel syndrome, unspecified; K56.600 Partial intestinal obstruction, unspecified as to cause; Z28.311 Partially vaccinated for COVID-19; I95.9 Hypotension, unspecified; E87.5 Hyperkalemia; E83.42 Hypomagnesemia; Z66 Do not resuscitate; Z20.822 Contact with and (suspected) exposure to COVID-19; R73.9 Hyperglycemia, unspecified; H54.7 Unspecified visual loss; H40.9 Unspecified glaucoma; K52.9 Noninfective gastroenteritis and colitis, unspecified; M19.90 Unspecified osteoarthritis, unspecified site; F41.9 Anxiety disorder, unspecified; Z98.49 Cataract extraction status, unspecified eye; Z79.01 Long term (current) use of anticoagulants; Z79.899 Other long term (current) drug therapy; Z90.710 Acquired absence of both cervix and uterus; Z87.442 Personal history of urinary calculi
CPT/HCPCS: 36415; 43752; 51702; 71045; 71260; 74018; 74150; 74177; 80048; 80053; 80162; 82150; 82550; 83036; 83605; 83690; 83735; 84484; 85025; 85027; 93005; 93010; 96361; 96374; 96375; 96376; 99223; 99285-25; A9270-GY; J1170; J1650; J2185; J2270; J2405; J3490; J7030; Q9967; U0002